=== PATIENT | male | born 1965 | race Caucasian/White ===

== ENCOUNTER 2020-07-23 17:55 | Emergency (ER) | payer MEDICAID ==
[~2020-07-23] VITALS: Ht 165.1 cm; Wt 95.5 kg
[2020-07-23 21:34] VITALS: BP 140/82
== END 2020-07-23 21:36 | disposition home or self-care (01) ==
LOC: EMS 17:55
DX: S50.01XA Contusion of right elbow, initial encounter (principal); S80.02XA Contusion of left knee, initial encounter; E11.9 Type 2 diabetes mellitus without complications; F17.210 Nicotine dependence, cigarettes, uncomplicated; W01.0XXA Fall on same level from slipping, tripping and stumbling without subsequent striking against object, initial encounter; Y93.01 Activity, walking, marching and hiking; Y92.89 Other specified places as the place of occurrence of the external cause; Y99.8 Other external cause status
CPT/HCPCS: 99284

== ENCOUNTER 2021-04-15 14:40 | Emergency (ER) | payer MEDICAID ==
[~2021-04-15] VITALS: Ht 165.1 cm; Wt 90.9 kg
[2021-04-15 15:12] LABS: GLUCOSE,POINT OF CARE 346 MG/DL (70-110)
[2021-04-15] MEDS ORDERED: PERTUSS(ACELL),DIPH,TET VAC/PF 0.5 ML SYRINGE IM. ONE (17:30)
[2021-04-15] MEDS ORDERED: AMOX TR/POT CLAV 875 MG/125 MG TABLET PO ONE (17:30)
[2021-04-15 18:14] VITALS: BP 122/76
== END 2021-04-15 18:15 | disposition home or self-care (01) ==
LOC: EMS 14:40
DX: L08.89 Other specified local infections of the skin and subcutaneous tissue (principal); E11.65 Type 2 diabetes mellitus with hyperglycemia
CPT/HCPCS: 10060; 82962; 90471; 90715; 99283

== ENCOUNTER 2022-07-24 16:41 | Emergency (ER) | payer MEDICAID, OTHER ==
[~2022-07-24] VITALS: Ht 165.1 cm; Wt 90.9 kg
[2022-07-24] MEDS ORDERED: METF-1211 PO (16:53)
[2022-07-24] MEDS ORDERED: IBUPROFEN 600 MG TABLET PO ONE (19:30)
[2022-07-24] MEDS ORDERED: CYCL-448 PO (20:05)
[2022-07-24] MEDS ORDERED: IBUP-1492 PO (20:05)
[2022-07-24 21:57] VITALS: BP 135/79
== END 2022-07-24 22:07 | disposition home or self-care (01) ==
LOC: EMS 16:41
DX: S13.4XXA Sprain of ligaments of cervical spine, initial encounter (principal); E11.9 Type 2 diabetes mellitus without complications; Z98.890 Other specified postprocedural states; V89.2XXA Person injured in unspecified motor-vehicle accident, traffic, initial encounter; Y93.89 Activity, other specified; Y92.89 Other specified places as the place of occurrence of the external cause; Y99.8 Other external cause status
CPT/HCPCS: 72125; 82962; 99284